=== PATIENT | female | born 1980 | race Caucasian/White ===

== ENCOUNTER → 2019-12-18 17:54 | Outpatient (ROUT) | payer SELFPAY ==
[2019-12-20 09:51] LABS: COVID19 Sendout Not Detected (Not Detect)
== END ==
PROVIDERS: PCP Family Medicine; Visit Provider Internal Medicine
DX: Z11.59 Encounter for screening for other viral diseases (principal)
CPT/HCPCS: 87635

== ENCOUNTER → 2020-02-19 07:11 | Outpatient (CLI) | payer OTHER, SELFPAY ==
--- NOTE | 2020-02-19 | DI.US.S_ITS ---
PROCEDURE: US OB <= 14 WEEKS FETUS INDICATIONS: DATES OUTSIDE/PRIOR DATING DATA: Last menstrual period (LMP): 12/30/2019. LMP-based estimated date of delivery (JEROME): 10/05/2020. First dating scan (date and location): 02/19/2020. Estimated date of delivery (JEROME) from first dating scan: 10/04/2020. TECHNIQUE: Real-time scanning was performed of the fetus and maternal pelvic organs, with image documentation. Endovaginal scanning was also performed to better visualize the fetus and maternal ovaries. COMPARISON: None. FINDINGS: Embryo: Intrauterine gestation with crown-rump length measuring 1.2 cm, corresponding to gestational age of 7 weeks 3 days. heart rate 149 BPM. Yolk sac is seen. No perigestational hemorrhage. Measurement variability in dating: +/- 4 weeks by LMP, +/- 7 days by mean sac diameter (use before 6 weeks gestation if crown-rump length not able to be measured), +/- 5 days by crown-rump length (up to 8 weeks 6 days gestation), +/- 7 days by crown-rump length (up to 13 weeks 6 days gestation). Maternal organs: Ovaries are within normal limits. Left corpus luteum measuring 2.5 cm. Limited images through the kidneys demonstrate no hydronephrosis. IMPRESSION: 1. Lewis living intrauterine at 7 weeks 3 days based on today's crown rump length. 2. No perigestational hemorrhage. Recommend follow-up OB ultrasound at 20 weeks for anatomic survey. Dictated by: Rubens Obando M.D. on 02/19/2020 at 9:52 Approved by: Rubens Obando M.D. on 02/19/2020 at 9:54
== END ==
PROVIDERS: PCP Family Medicine; Referring Provider Family Medicine; Visit Provider Family Medicine
DX: Z36.87 Encounter for antenatal screening for uncertain dates (principal); Z3A.01 Less than 8 weeks gestation of pregnancy
CPT/HCPCS: 76801; 76817

== ENCOUNTER → 2020-05-22 15:38 | Outpatient (CLI) | payer OTHER, SELFPAY ==
--- NOTE | 2020-05-22 | DI.US.S_ITS ---
PROCEDURE: US OB >= 14 WEEKS FETUS INDICATIONS: anatomy scan OUTSIDE/PRIOR DATING DATA: Last menstrual period (LMP): 12/30/19 . LMP-based estimated date of delivery (JEROME): 10/05/20 . First dating scan (date and location): 02/19/20 . Estimated date of delivery (JEROME) from first dating scan: 10/04/20 . TECHNIQUE: Real-time scanning was performed of the fetus, with image documentation and biometric measurements. Endovaginal scanning: Not performed COMPARISON: [facility], OB <= 14 WEEKS FETUS, 02/19/2020, 7:35. FINDINGS: General: A single living intrauterine gestation is present. Presentation: Vertex. Placenta: Placental position is anterior , without previa. Amniotic fluid index: 13.4 cm, normal range is 5-24 cm. heart rate: 160 beats per minute. Maternal cervical canal: 3.8 cm long. Normal lower limit is 2.5 cm. biometrics: Biparietal diameter: 5.1 cm, 21 weeks 2 days Head circumference: 18.5 cm, 20 weeks 6 days Abdominal circumference: 16.3 cm, 21 weeks 2 days Femur length: 3.6 cm, 21 weeks 4 days Estimated gestational age from initial scan: 20 weeks 5 days Composite gestational age from present scan: 21 weeks 2 days Estimated weight and percentile: 419 g, 80th percentile Measurement variability for biometric dating: +/- 7 days from 14 weeks to 15 weeks 6 days gestation, +/- 10 days from 16 weeks to 21 weeks 6 days gestation, +/- 2 weeks from 22 weeks to 27 weeks 6 days gestation, +/- 3 weeks for 28 weeks gestation or later. weight reference: 4500 g or EFW >90/95% is considered macrosomia or large for gestational age. EFW <10% is small for gestational age. EFW 5% or less is considered intra-uterine growth restriction. Anatomic survey: Neuro: Ventricles are non-dilated at less than 10 mm. Cisterna magna is normal at 3-11 mm. Cerebellum is normal in size and morphology. Nuchal skin fold: Normal at less than 6 mm between 14-21 weeks gestational age. Face: Nose and lips, facial profile are normal. Spine: No evidence for spina bifida. Heart: 4-chambered heart is present, with normal ventricular outflow tracts. Diaphragm: Diaphragm is intact. Stomach: Left-sided stomach is present. Kidneys: No hydronephrosis. Normal is less than 5 mm in 2nd trimester, less than 7 mm in 3rd trimester. Cord: 3-vessel cord has orthotopic insertion. Bladder: Normal in size. Extremities: All 4 extremities identified. IMPRESSION: Single living intrauterine fetus in vertex presentation. Expected interval growth Normal anatomic survey Dictated by: Gaston Parnell M.D. on 05/23/2020 at 9:49 Approved by: Gaston Parnell M.D. on 05/23/2020 at 10:01
== END ==
PROVIDERS: PCP Family Medicine; Referring Provider Family Medicine; Visit Provider Family Medicine
DX: Z36.89 Encounter for other specified antenatal screening (principal); Z3A.21 21 weeks gestation of pregnancy
CPT/HCPCS: 76811

== ENCOUNTER → 2020-09-10 15:35 | Outpatient (ROUT) | payer OTHER, SELFPAY | PROVIDERS: PCP Family Medicine; Visit Provider Family Medicine | DX: Z34.00 Encounter for supervision of normal first pregnancy, unspecified trimester (principal) | CPT/HCPCS: 87081; 87147 ==

== ENCOUNTER → 2020-09-24 13:55 | Outpatient (CLI) | payer OTHER, SELFPAY ==
--- NOTE | 2020-09-24 | DI.US.S_ITS ---
PROCEDURE: US OB LIMITED INDICATIONS: SGA OUTSIDE/PRIOR DATING DATA: Last menstrual period (LMP): 12/30/2019 . LMP-based estimated date of delivery (JEROME): 10/05/2020 . First dating scan (date and location): 02/19/2020 . Estimated date of delivery (JEROME) from first dating scan: 10/04/2020 . TECHNIQUE: Real-time scanning was performed of the fetus, with image documentation and biometric measurements. COMPARISON: [facility], OB >= 14 WEEKS FETUS, 05/22/2020, 15:50. [facility], OB <= 14 WEEKS FETUS, 02/19/2020, 7:35. FINDINGS: General: A single living intrauterine gestation is present. Presentation: Vertex. Placenta: Placental position is anterior , without previa. Amniotic fluid index: 11.7 cm, normal range is 5-24 cm. heart rate: 145 beats per minute. Maternal cervical canal: Not evaluated biometrics: Biparietal diameter: 9.3 cm 37 weeks 5 days Head circumference: 33.7 cm 38 weeks 5 days Abdominal circumference: 34.3 cm 38 weeks 2 days Femur length: 7.1 cm 36 weeks 3 days Estimated gestational age from initial scan: 38 weeks 4 days Composite gestational age from present scan: 37 weeks 6 days Estimated weight and percentile: 3315 g 47th percentile Measurement variability for biometric dating: +/- 7 days from 14 weeks to 15 weeks 6 days gestation, +/- 10 days from 16 weeks to 21 weeks 6 days gestation, +/- 2 weeks from 22 weeks to 27 weeks 6 days gestation, +/- 3 weeks for 28 weeks gestation or later. weight reference: 4500 g or EFW >90/95% is considered macrosomia or large for gestational age. EFW <10% is small for gestational age. EFW 5% or less is considered intra-uterine growth restriction. Other: Not applicable. IMPRESSION: 1. Single live intrauterine with appropriate interval growth. Dictated by: Melissa Sunshine M.D. on 09/24/2020 at 16:44 Approved by: Melissa Sunshine M.D. on 09/24/2020 at 16:45
== END ==
PROVIDERS: PCP Family Medicine; Referring Provider Family Medicine; Visit Provider Family Medicine
DX: O26.843 Uterine size-date discrepancy, third trimester (principal); Z3A.37 37 weeks gestation of pregnancy
CPT/HCPCS: 76815

== ENCOUNTER → 2020-10-01 13:40 | Outpatient (CLI) | payer OTHER, SELFPAY ==
--- NOTE | 2020-10-01 | DI.US.S_ITS ---
PROCEDURE: US OB LIMITED COMPARISON: [facility], OB >= 14 WEEKS FETUS, 05/22/2020, 15:50. [facility], OB LIMITED, 09/24/2020, 14:02. INDICATIONS: AMNIOTIC FLUID INDEX FINDINGS: Study at clinician request. Presentation currently is vertex, amniotic fluid index is 11.3 cm. heart rate 126 beats per minute. Current estimated gestational age by initial ultrasound is 39 weeks 4 days. IMPRESSION: Normal amniotic fluid volume. Dictated by: Haile Eduardo M.D. on 10/01/2020 at 16:44 Approved by: Haile Eduardo M.D. on 10/01/2020 at 16:45
== END ==
PROVIDERS: PCP Family Medicine; Referring Provider Family Medicine; Visit Provider Family Medicine
DX: O36.5930 Maternal care for other known or suspected poor fetal growth, third trimester, not applicable or unspecified (principal)
CPT/HCPCS: 76816

== ENCOUNTER 2020-10-01 13:44 | Outpatient (CLI) | payer OTHER, SELFPAY | END 2020-10-01 15:09 | disposition home or self-care (01) | LOC: AC 14:09 → OB 10-02 08:42 | PROVIDERS: PCP Family Medicine; Referring Provider Family Medicine; Visit Provider Family Medicine | DX: O36.5930 Maternal care for other known or suspected poor fetal growth, third trimester, not applicable or unspecified (principal); O09.513 Supervision of elderly primigravida, third trimester; Z3A.39 39 weeks gestation of pregnancy | CPT/HCPCS: 59025; 76816; 87081; G0378; G0379 ==

== ENCOUNTER → 2020-10-01 16:42 | Outpatient (ROUT) | payer OTHER, SELFPAY | PROVIDERS: PCP Family Medicine; Visit Provider Family Medicine | DX: Z34.00 Encounter for supervision of normal first pregnancy, unspecified trimester (principal) | CPT/HCPCS: 87081 ==

== ENCOUNTER 2020-10-07 16:03 | Outpatient (CLI) | payer OTHER, SELFPAY | END 2020-10-07 17:15 | disposition home or self-care (01) | LOC: LABOR 16:50 → OB 10-08 06:44 | PROVIDERS: PCP Family Medicine; Referring Provider Family Medicine; Visit Provider Family Medicine | DX: O36.8130 Decreased fetal movements, third trimester, not applicable or unspecified (principal); Z3A.40 40 weeks gestation of pregnancy; O48.0 Post-term pregnancy | CPT/HCPCS: 59025; G0378; G0379 ==

== ENCOUNTER 2020-10-08 20:03 | Inpatient (IN) | payer OTHER, SELFPAY ==
[2020-10-08 21:36] LABS: Add Manual Diff / Slide Review NO; Basophils Absolute Auto 0 /uL (0-100); Basophils Percent Auto 0.4 % (0-2); Eosinophils Absolute Auto 200 /uL (0-450); Eosinophils Percent Auto 1.4 % (2-4); Hematocrit 33.4 % (36-46); Hemoglobin 11.3 g/dL (12.0-16.0); Lymphocytes Absolute Auto 1500 /uL (1100-4500); Lymphocytes Percent Auto 13.3 % (25-40); Mean Corpuscular HGB Conc 33.8 % (30-36); Mean Corpuscular Hemoglobin 29.8 PG (26-34); Monocytes Absolute Auto 700 /uL (0-900); Monocytes Percent Auto 5.8 % (3-14); Neutrophils Absolute Auto 9000 /uL (1500-7000); Neutrophils Percent Auto 79.1 % (50-75); Platelet Count 248 X10^3/uL (150-400); Red Cell Distribution Width 12.9 % (11.6-14.8); White Blood Cell Count 11.3 X10^3/uL (4.5-11.0)
[2020-10-08] MEDS: DINOPROSTONE VAG (CERVIDIL) 10 MG VAG (21:45)
[2020-10-08 22:31] LABS: COVID19 - ADMIT (NP swab/PCR) Negative (Negative)
[2020-10-08] MEDS: LACTATED RINGERS 1,000 ML 100 ML IV (23:10)
[2020-10-08] MEDS: CEFAZOLIN 1 GM VIAL IV (23:30)
[2020-10-08] MEDS: ACETAMINOPHEN IV 1,000 MG/100 ML VIAL 400 MG IV (23:46)
--- NOTE | 2020-10-08 23:48 | SUR.OPER ---
Supine on Padded OR bed, head on pillow, safety belt at thigh, arms secured on padded arm boards at <90 degrees abduction. Bump under right buttock. Legs uncrossed with pillow under knees, gel pad to heels, tape over blanket to lower legs.
--- NOTE | 2020-10-08 23:52 | SUR.OPER ---
Viable female delivered at 23:43. Cord blood vials x2 and placenta sent with L&D RN.
[2020-10-09] MEDS: LACTATED RINGERS 1,000 ML 100 ML IV (00:24)
--- NOTE | 2020-10-09 00:26 | P.OP_ITS ---
Operative Date/Time/Diagnoses Date of procedure: 10/09/20 Time of procedure: 00:26 Pre-op diagnosis: 40+ internal uterine with advanced maternal age and distres Post-op diagnosis: same Procedure & Clinicians Procedure: primary low transverse Same procedure as scheduled: Yes Indications: advanced maternal age and phenyl distress Surgeon: Terry Alvarado Jelly Filter Tender: Genesis Koenig Click Yes if Unassisted: No Anesthesia Type: Epidural Operative Notes Findings: viable female 7 lb 6 oz Apgars 9 and 9. Normal pelvic organs Closure Type: primary Specimen(s): none sent Applied: catheter Estimated Blood Loss (mL): 400 Blood products transfused: none Procedure in detail: patient was consented in her room. After the fact that baby was having distress. For to 5 minute deceleration. We discussed the reasons for this. Questions were answered. Both her and her understood. She was brought to the operative theatre and scopes procedure were followed. She was placed on the operative table and epidural was placed by Dr. Dotson without complications. Excellent results. She was placed in the wedge supine position prepped and draped in the usual manner after catheter was placed. Pfannenstiel incision was then made down to the subcutaneous tissue. It was extended bluntly. The midline was then entered and the fascia with sharp dissection with the scalpel and then extended laterally with scissors. Bilaterally. Elevated with Ashtyn is and blunt dissection was used to elevate the fascia off the muscle in the midline was cut with S curve scissors. This was repeated inferiorly. Blunt dissection was then undertaken between the muscle layer until the perineum was established and would under direct visualization was bluntly entered. This was extended with blunt dissection. Bladder blade was then introduced. Bladder flap was then developed after incision with Mahmood scissors. Bladder blade was placed into the bladder flap. A low-transverse incision was then made on the uterus in the usual manner. Until clear fluid was noted. It was extended bluntly. Head was then grasped and delivered without complications nuchal cord x1. Child was slightly in the left occiput lateral position. Child was crying immediately. Cord was clamped cord bloods and cord gases were obtained. Sent with respiratory therapy. Placenta was then removed manually without complications the uterine contents were then swiped with a wet lap sponge. X2. No bleeding was noted. Uterine incisions other grafts to in the corner with ring forceps along with inferior lip. Ring forceps was passed through the cervix into the vagina and off of the operative theater. Uterine incision was then closed with running locked chromic sutures. This was repeated with a running imbricating chromic suture line. Irrigation was then done to the abdominal contents re-evaluated wound and was found to be dry. Bladder flap was then closed with running 3-0 Vicryl. Peritoneum was then closed with running 2-0 Vicryl. Muscle layer was then approximated with 2 2-0 Vicryl interrupted sutures. Fascia was then closed with running 1 Vicryl. Irrigation was done to the subcutaneous tissue. Subcutaneous tissue was then approximated with 3 3-0 Vicryl interrupted sutures he. Skin was closed with 4-0 subcuticular sutures. Steri-Strips and dressing were applied. All sponge instrument needle counts were correct. mother and infant were in stable condition. EBL 400 cc
[2020-10-09 00:38] VITALS: BP 101/57; PULSE 62; RESP 16; TEMP 36.3; O2SAT 98
[2020-10-09 00:40] VITALS: BP 118/61; PULSE 67; RESP 23; O2SAT 98
[2020-10-09 00:46] VITALS: BP 108/48; PULSE 69; RESP 17; O2SAT 98
--- NOTE | 2020-10-09 00:47 | PM.OBHP.1 ---
OB HPI Date/Time Date of admission: 10/09/20 Date Patient Seen: 10/09/20 Time Patient Seen: 22:30 History of Present Condition Chief complaint: induction : 2 Para: 0 Estimated Date of Delivery: 10/05/20 Estimated Gestational Age (weeks): Forty Narrative: Gaston Camara is a 40 year old female female who I was asked to see for distress. Patient was brought in for elderly at 39 weeks [address] induction [address] Dr[address] Koenig. She had Cervidil placed and 1 hour later heart rate went into the 60s for 5 minutes despite oxygen positional changes in fluid challenge. no other complications. GBS positive. Patient had been feeling well. Having no other complaint or problem. Indications Indication for induction OB: other Other reason(s) for admission: Induction for elderly maternal . History of Present care: good care Dating criteria: LMP confirmed by 1st trimester US Ultrasounds: normal mid trimester US Obstetrical complications: none Medical complications: none Preadmission Labs Blood type: O (+) positive -: Antibody screen: negative, Cystic fibrosis screen: unknown, GBS status: positive, HBsAG: negative, HSV 1: negative and RPR/VDLR: negative -: Chlamydia screen: not detected and Gonorrhea screen: not detected -: Rubella: immune and Varicella: unknown HCAB: negative PAP: Normal 1 hr GTT: 101 Evaluation Evaluation Laboratory results: Laboratory Tests 10/08/20 10/08/20 10/08/20 21:05 21:05 21:05 WBC 11.3 H RBC 3.80 L Hgb 11.3 L Hct 33.4 L MCV 88.0 MCH 29.8 MCHC 33.8 RDW 12.9 Plt Count 248 Neut % (Auto) 79.1 H Lymph % (Auto) 13.3 L [place] % (Auto) 5.8 Eos % (Auto) 1.4 L Baso % (Auto) 0.4 Neut # (Auto) 9000 H Lymph # (Auto) 1500 [place] # (Auto) 700 Eos # (Auto) 200 Baso # (Auto) 0 SARS-CoV-2 (PCR) Negative Blood Type O Positive Antibody Screen Negative PFSH Social History Smoking Status: Never smoker Meds Home Medications and Allergies Home Medications Medication Instructions Recorded Confirmed Type No Known Home Medications 10/08/20 10/08/20 History Allergies Allergy/AdvReac Type Severity Reaction Status Date / Time INGREDIENT: NKDA - NO KNOWN Allergy Unknown Uncoded 08/04/17 12:07 DRUG ALLERGIES Exam Vital Signs (past 8 hours): - 10/09/20 00:38 10/09/20 00:40 Temperature 97.3 F L Pulse Rate 62 67 Respiratory Rate 16 23 Blood Pressure 101/57 L 118/61 Pulse Oximetry 98 98 Oxygen Delivery Method Room Air Narrative Exam Narrative: Alert gravid female lying in bed on side with oxygen in no acute distress. Lungs are clear. Heart regular rate and rhythm. Abdomen is gravid vertex nontender. Extremities without edema. Objective Labs Result Diagrams: 10/08/20 21:05 Labs: Laboratory Results - last 24 hr 10/08/20 10/08/20 10/08/20 21:05 21:05 21:05 WBC 11.3 H RBC 3.80 L Hgb 11.3 L Hct 33.4 L MCV 88.0 MCH 29.8 MCHC 33.8 RDW 12.9 Plt Count 248 Neut % (Auto) 79.1 H Lymph % (Auto) 13.3 L [place] % (Auto) 5.8 Eos % (Auto) 1.4 L Baso % (Auto) 0.4 Neut # (Auto) 9000 H Lymph # (Auto) 1500 [place] # (Auto) 700 Eos # (Auto) 200 Baso # (Auto) 0 SARS-CoV-2 (PCR) Negative Blood Type O Positive Antibody Screen Negative Assessment and Plan Assessment and Plan Assessment and Plan narrative: 40-year-old 40+ week intrauterine with Cervidil placed and shortly after without really any significant contractions as significant deceleration. After discussion with heard physician Dr. Koenig it was decided since she has minimal cervix change at this point and significant deceleration primary cyst sections section emergently will be undertaken. This was discussed with patient and her period and consent was signed. Will proceed operat
[2020-10-09 00:50] VITALS: BP 106/50; PULSE 69; RESP 20; O2SAT 99
[2020-10-09] MEDS: diphenhydrAMINE 50 MG/ML VIAL 25 MG IV (02:19)
[2020-10-09] MEDS: ONDANSETRON 4 MG/2 ML INJ IV (02:19)
[2020-10-09 03:55] VITALS: BP 114/75; PULSE 86; RESP 18; TEMP 36.6
[2020-10-09 05:16] VITALS: PULSE 70; RESP 20; O2SAT 99
[2020-10-09] MEDS: KETOROLAC 30 MG/ML VIAL IV ×3 (08:17→21:05)
[2020-10-09] MEDS: PRENATAL VIT,CALC/IRON/FOLIC 1 TABLET 1 TAB PO (08:18)
--- NOTE | 2020-10-09 08:39 | P.PN_ITS ---
Subjective Subjective Date Patient Seen: 10/09/20 Time Patient Seen: 08:39 Interval history: Patient feeling well this morning. Having minimal pain. Feels like she can reposition in bed not do bed. Minimal bleeding. Breast- feeding is going okay. Still working on that. No other changes. Exam Vital Signs (past 8 hours): - 10/09/20 00:40 10/09/20 00:46 10/09/20 00:50 Pulse Rate 67 69 69 Respiratory Rate 23 17 20 Blood Pressure 118/61 108/48 L 106/50 L Pulse Oximetry 98 98 99 10/09/20 05:16 Pulse Rate 70 Respiratory Rate 20 Blood Pressure Pulse Oximetry Oxygen Delivery Method Room Air Narrative Exam Narrative: Alert female lying in bed no acute distress. Lungs are clear. Heart regular rate and rhythm. Uterus is firm in bili cuss incision is clean and dry. Extremities without cyanosis clubbing edema Objective Labs Result Diagrams: 10/08/20 21:05 Labs: Laboratory Results - last 24 hr 10/08/20 10/08/20 10/08/20 21:05 21:05 21:05 WBC 11.3 H RBC 3.80 L Hgb 11.3 L Hct 33.4 L MCV 88.0 MCH 29.8 MCHC 33.8 RDW 12.9 Plt Count 248 Neut % (Auto) 79.1 H Lymph % (Auto) 13.3 L [place] % (Auto) 5.8 Eos % (Auto) 1.4 L Baso % (Auto) 0.4 Neut # (Auto) 9000 H Lymph # (Auto) 1500 [place] # (Auto) 700 Eos # (Auto) 200 Baso # (Auto) 0 SARS-CoV-2 (PCR) Negative Blood Type O Positive Antibody Screen Negative [facility] Social History Smoking Status: Never smoker Assessment & Plan Assessment & Plan narrative: Postop day 1. Doing well. Discussed usual Education. Questions were answered. Overall doing exceedingly well. Possibly home tomorrow. Routine care. Will see how things go.
[2020-10-10 06:49] LABS: Hematocrit 28.7 % (36-46); Hemoglobin 9.8 g/dL (12.0-16.0)
[2020-10-10] MEDS: IBUPROFEN 600 MG TABLET PO (09:35)
[2020-10-10] MEDS: PRENATAL VIT,CALC/IRON/FOLIC 1 TABLET 1 TAB PO (09:35)
--- NOTE | 2020-10-10 13:35 | P.DS_ITS ---
Discharge Providers Provider Date of admission: 10/08/20 20:03 Discharge Date: 10/10/20 Primary care physician: Genesis Koenig MD Consults: 10/09/20 01:20 Consult to [employer] Routine Comment: Discharge provider: Genesis Koenig MD Summary Hospital Course Diagnoses: Term gestation status post Caesarean section, primary low-transverse secondary to distress. GBS positive, status post 1 dose of cefazolin Advanced maternal age Hospital Course: Patient admitted to hospital for induction due to advanced maternal age. Cervidil placed and 1 hour later spontaneous T-cell with movement of heart rate to 60s lasting for 4 minutes with slow recovery over the next 5-10 minutes up to baseline of the 1 teens 120s. Variability remained stable throughout this but it was decided to proceed with emergency Caesarean section. Patient tolerated procedure well without difficulty had unremarkable course. She did excellent. Her pain was managed with Toradol and then changed over to oral Motrin. She did not require any narcotics. At the time of discharge she is tolerating p.o. without difficulty urinating and having flatus but has not had a bowel movement. She is discharged to home on day 2. Peripartum Data Delivery Method: Section Procedures: Primary low transverse section complications: none Status at Discharge Cognitive/behavioral status at discharge: oriented Functional status at discharge: independent ambulation Overall status at discharge: patient is progressing back to baseline Time Spent with Patient Time attestation: Total time spent providing and/or coordinating discharge services: 35 minutes Objective Labs Result Diagrams: 10/10/20 06:32 Labs: Laboratory Results - last 24 hr 10/10/20 06:32 Hgb 9.8 L Hct 28.7 L Exam Vital Signs (past 8 hours): Oxygen Delivery Method Room Air Narrative Exam Narrative: Afebrile, vital signs are stable HEENT unremarkable Neck: Supple without adenopathy Chest: Clear to auscultation without wheezes rhonchi or crackles Cor: Regular rate and rhythm any murmur Abdomen positive bowel sounds, soft, nontender, incision clean and dry Extremities: No edema, pulses intact, DTRs intact Discharge Plan Discharge Plan Patient Disposition: Home Discharge orders & Medications Prescriptions: No Action No Known Home Medications RF: 0 Follow up/Referrals: Genesis Koenig MD [Primary Care Provider] - (Dressing removal and incision check to be done at exam scheduled with Dr. Koenig on Wednesday, October 14 @2:15pm.) Diet/Activity/Treatments Diet: Diet as Tolerated Diet comment: Regular as tolerated Activity: Pelvic rest, no heavy lifting, no driving x4 weeks Skin/Wound/Dressing Care Report to your healthcare provider any signs of infection, such as:: chills, fever, night sweats, increased pain, unusual drainage and unusual redness Discharge Data Primary Care Provider: Genesis Koenig
== END 2020-10-10 15:02 | disposition home or self-care (01) | DRG 788 ==
PROVIDERS: Family Medicine; Admitting Provider Family Medicine; PCP Family Medicine; Referring Provider Family Medicine; Visit Provider Family Medicine
PROC: (CPT 59514; principal; 2020-10-08 23:15)
DX: O48.0 Post-term pregnancy (principal); O76 Abnormality in fetal heart rate and rhythm complicating labor and delivery; O99.824 Streptococcus B carrier state complicating childbirth; Z3A.40 40 weeks gestation of pregnancy; Z37.0 Single live birth; Z20.822 Contact with and (suspected) exposure to COVID-19
CPT/HCPCS: 36415; 59050; 59200; 85014; 85018; 85025; 86850; 86900; 86901; 87635; C9803; G0379; J0131; J0330; J0690; J1200; J1885; J2274; J2405; J2590

== ENCOUNTER → 2021-05-19 12:45 | Outpatient (CLI) | payer OTHER, SELFPAY ==
--- NOTE | 2021-05-19 12:46 | DI.RAD.S_ITS ---
PROCEDURE: FL UPPER GI W AIR INDICATIONS: Dysphagia, unspecified COMPARISON: None. 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 No suspicious abdominal calcifications. Visualized solid organ contours appear normal. Bony structures appear unremarkable. Esophagus: Esophageal mucosa is normal on air-contrast views. Small hiatal hernia with prominent Schatzki's ring noted. On single-contrast views, there is normal esophageal peristalsis. No strictures, extrinsic mass effects, or diverticula. No elicited gastroesophageal reflux. There is normal transit of a calibrated barium tablet through the esophagus. Stomach: The stomach is normally distensible, with normal rugal fold thickness. No mucosal masses or ulcers. Pylorus and duodenal bulb appear normal in morphology. Duodenal folds are normal in thickness as well. IMPRESSION: 1. Small hiatal hernia with prominent Schatzki's ring which do not impede passage of 13 millimeter barium tablet. 2. Otherwise, normal examination. Dictated by: Lisette Israel MD, PhD on 05/19/2021 at 16:17 Approved by: Lisette Israel MD, PhD on 05/19/2021 at 16:21
== END ==
PROVIDERS: PCP Family Medicine; Referring Provider Family Medicine; Visit Provider Family Medicine
DX: R13.10 Dysphagia, unspecified (principal); K22.2 Esophageal obstruction; K44.9 Diaphragmatic hernia without obstruction or gangrene
CPT/HCPCS: 74246

== ENCOUNTER → 2022-01-20 09:00 | Outpatient (CLI) | payer OTHER, SELFPAY | PROVIDERS: PCP Family Medicine; Referring Provider Internal Medicine; Visit Provider Internal Medicine | DX: Z23 Encounter for immunization (principal) | CPT/HCPCS: 90471; 90686 ==

== ENCOUNTER → 2022-02-05 16:16 | Outpatient (CLI) | payer OTHER, SELFPAY ==
--- NOTE | 2022-02-05 | DI.MG.S_ITS ---
BILATERAL DIGITAL SCREENING MAMMOGRAM 3D/2D WITH CAD: 02/05/2022 CLINICAL: Routine screening. Baseline exam. No prior exams were available for comparison. Both breasts are heterogeneously dense, which may obscure small masses (category c / 51-75% glandular tissue). Current study was also evaluated with a Computer Aided Detection (CAD) system. No significant masses, calcifications, or other findings are seen in either breast. IMPRESSION: NEGATIVE There is no mammographic evidence of malignancy. A 1 year screening mammogram is recommended. Based on the Tyrer Cuzick model (a risk assessment model) the patient's lifetime risk is 12.2% and her 10 year risk is 1.5%. According to the ACR, ACS, and NCCN guidelines, an annual breast MRI exam along with mammogram is recommended if the patient's lifetime risk is 20% or greater. This exam was interpreted at Station ID: [id number]. NOTE: For mammograms, a report in lay terms will be sent to the patient. Approximately 15% of breast malignancies will not be visualized mammographically. In the management of a palpable breast mass, a negative mammogram must not discourage biopsy of a clinically suspicious lesion. Electronically Signed By: Erin hwang/tabitha:02/06/2022 11:13:14 letter sent: Normal Exam ACR BI-RADS Category 1: Negative 3341F
== END ==
PROVIDERS: PCP Family Medicine; Referring Provider Family Medicine; Visit Provider Family Medicine
DX: Z12.31 Encounter for screening mammogram for malignant neoplasm of breast (principal)
CPT/HCPCS: 77063; 77067

== ENCOUNTER → 2022-05-18 14:58 | Outpatient (CLI) | payer OTHER, SELFPAY ==
[2022-05-18 21:38] LABS: Urine N gonorrhoeae NOT DETECTED
[2022-05-18 21:45] LABS: Urine Chlamydia NOT DETECTED
== END ==
PROVIDERS: PCP Family Medicine; Visit Provider Obstetrics & Gynecology
DX: Z34.81 Encounter for supervision of other normal pregnancy, first trimester (principal); Z3A.08 8 weeks gestation of pregnancy
CPT/HCPCS: 87491; 87591

== ENCOUNTER → 2022-05-29 11:30 | Outpatient (CLI) | payer OTHER, SELFPAY ==
[2022-05-29 12:39] LABS: Add Manual Diff / Slide Review NO; Basophils Absolute Auto 0 /uL (0-100); Basophils Percent Auto 0.2 % (0-2); Eosinophils Absolute Auto 0 /uL (0-450); Eosinophils Percent Auto 0.5 % (2-4); Hematocrit 38.7 % (36-46); Hemoglobin 13.1 g/dL (12.0-16.0); Lymphocytes Absolute Auto 600 /uL (1100-4500); Lymphocytes Percent Auto 10.1 % (25-40); Mean Corpuscular HGB Conc 33.9 % (30-36); Mean Corpuscular Hemoglobin 29.1 PG (26-34); Mean Corpuscular Volume 85.7 fL (80-100); Monocytes Absolute Auto 300 /uL (0-900); Monocytes Percent Auto 4.8 % (3-14); Neutrophils Absolute Auto 4900 /uL (1500-7000); Neutrophils Percent Auto 84.4 % (50-75); Platelet Count 200 X10^3/uL (150-400); Red Blood Cell Count 4.52 X10^6/uL (4.0-5.2); Red Cell Distribution Width 14.2 % (11.6-14.8); White Blood Cell Count 5.8 X10^3/uL (4.5-11.0)
[2022-05-29 14:17] LABS: Hepatitis B Surface Antigen NEGATIVE s/c (NEGATIVE)
[2022-05-29 14:38] LABS: HIV 1 & 2 Ab/Ag 4th Gen Combo NEGATIVE (NEGATIVE); Hep C Virus Ab w/Reflex Quant NEGATIVE s/c (NEGATIVE)
[2022-05-29 19:13] LABS: Appearance Urine UA CLEAR; Bilirubin Urine UA 1+ (NEGATIVE); Color Urine UA YELLOW; Glucose Urine UA NEGATIVE (Negative); Ketones Urine UA TRACE (NEGATIVE); Leukocyte Esterase Urine UA NEGATIVE (NEGATIVE); Nitrite Urine UA POSITIVE (Negative); Occult Blood Urine UA NEGATIVE (Negative); Protein Urine UA TRACE (Negative); Specific Gravity Urine UA >=1.030 (1.000-1.035)
[2022-05-29 19:30] LABS: Amorphous Sediment Urine 4+; Bacteria Urine None Seen; Culture Indicated Urine Cult Not Indicated; Ictotest Urine Negative (Negative); RBC Urine None Seen (0-5/HPF); Squamous Epithelial Cell Urine None Seen (0-5/HPF); WBC Urine None Seen (0-5/HPF)
[2022-05-30 08:09] LABS: RPR Screen Non Reactive (Non Reactive); Varicella IgG Antibody 2367 index (Immune >165)
== END ==
PROVIDERS: PCP Family Medicine; Referring Provider Obstetrics & Gynecology; Visit Provider Obstetrics & Gynecology
DX: Z34.81 Encounter for supervision of other normal pregnancy, first trimester (principal)
CPT/HCPCS: 36415; 80055; 81003; 81015; 86787; 86803; 86850; 86900; 86901; 87086; 87389

== ENCOUNTER → 2022-06-01 12:46 | Outpatient (CLI) | payer OTHER, SELFPAY | PROVIDERS: PCP Family Medicine; Referring Provider Obstetrics & Gynecology; Visit Provider Obstetrics & Gynecology | DX: O09.521 Supervision of elderly multigravida, first trimester (principal) | CPT/HCPCS: 36415 ==

== ENCOUNTER → 2022-07-13 09:52 | Outpatient (CLI) | payer OTHER, SELFPAY ==
[2022-07-16 19:07] LABS: AFP Value 23.2 ng/mL (.); Gest Age on Col Date 16.1 weeks (.); Insulin Dep Diabetes No (.); OSBR Risk 1IN 10000 (.); Results Report (.); Test Results *Screen Negative* (.)
== END ==
PROVIDERS: PCP Family Medicine; Referring Provider Physician Assistant Medical; Visit Provider Physician Assistant Medical
DX: Z34.82 Encounter for supervision of other normal pregnancy, second trimester (principal); Z3A.16 16 weeks gestation of pregnancy
CPT/HCPCS: 36415; 82105

== ENCOUNTER → 2022-08-10 14:05 | Outpatient (CLI) | payer OTHER, SELFPAY ==
--- NOTE | 2022-08-10 14:06 | DI.US.S_ITS ---
PROCEDURE: US OB >= 14 WEEKS FETUS INDICATIONS: ANATOMY OUTSIDE/PRIOR DATING DATA: Last menstrual period (LMP): 03/22/2022. LMP-based estimated date of delivery (JEROME): 12/27/2022. First dating scan (date and location): 05/18/2022. Estimated date of delivery (JEROME) from first dating scan: 12/25/2022. The calculations are made using the working JEROME of 12/25/2022. TECHNIQUE: Real-time scanning was performed of the fetus, with image documentation and biometric measurements. Endovaginal scanning: None COMPARISON: [facility], OB >= 14 WEEKS FETUS, 05/22/2020, 15:50. FINDINGS: General: A single living intrauterine gestation is present. Presentation: Transverse. Placenta: Placental position is posterior , without previa. Amniotic fluid index: 14.2 cm, normal range is 5-24 cm. Single deepest vertical pocket is 4.6 cm. heart rate: 136 beats per minute. Maternal cervical canal: 4.1 cm long. Normal lower limit is 2.5 cm. biometrics: Biparietal diameter: 4.9 cm, 20 week 5 day Head circumference: 18.0 cm, 20 week 3 day Abdominal circumference: 16.3 cm, 21 week 3 day Femur length: 3.3 cm, 20 week 3 day Clinically estimated gestational age: 20 week 1 day Composite gestational age from present scan: 20 week 5 day Estimated weight and percentile: 383 g, 84th percentile Anatomic survey: Neuro: Ventricles are non-dilated at less than 10 mm. Cisterna magna is normal at 3-11 mm. Cerebellum is normal in size and morphology. Nuchal skin fold: Normal at less than 6 mm between 14-21 weeks gestational age. Face: Nose and lips, facial profile are normal. Spine: No evidence for spina bifida. Heart: 4-chambered heart is present, with normal ventricular outflow tracts. Diaphragm: Diaphragm is intact. Stomach: Left-sided stomach is present. Kidneys: No hydronephrosis. Normal is less than 5 mm in 2nd trimester, less than 7 mm in 3rd trimester. Cord: 3-vessel cord has orthotopic insertion. Bladder: Normal in size. Extremities: All 4 extremities identified. IMPRESSION: Single live intrauterine consistent with a 20 week 5 day gestation by current ultrasound Approved by: Marin Rankin M.D. on 08/10/2022 at 18:55
== END ==
PROVIDERS: PCP Family Medicine; Referring Provider Obstetrics & Gynecology; Visit Provider Obstetrics & Gynecology
DX: Z34.82 Encounter for supervision of other normal pregnancy, second trimester (principal); Z3A.20 20 weeks gestation of pregnancy
CPT/HCPCS: 76811

== ENCOUNTER → 2022-09-23 12:36 | Outpatient (CLI) | payer OTHER, SELFPAY ==
[2022-09-23 14:32] LABS: Hematocrit 36.1 % (36-46); Hemoglobin 12.4 g/dL (12.0-16.0)
[2022-09-23 16:04] LABS: GTT (PREG) 1 Hour PP 50gm Dose 98 mg/dL (76-139)
== END ==
PROVIDERS: PCP Family Medicine; Referring Provider Obstetrics & Gynecology; Visit Provider Obstetrics & Gynecology
DX: Z34.82 Encounter for supervision of other normal pregnancy, second trimester (principal); Z3A.26 26 weeks gestation of pregnancy
CPT/HCPCS: 36415; 82950; 85014; 85018

== ENCOUNTER 2022-09-24 23:10 | Outpatient (CLI) | payer OTHER, SELFPAY ==
--- NOTE | 2022-09-25 07:24 | PM.OBTRLD ---
Visit Information Visit Information Date of evaluation: 09/24/22 Primary OB Provider: Sujey Jung On-call OB Provider: Alissa Robb Reason for Evaluation: Yes other Comments/Additional reasons for admission: 42YO @ 26wks 4 days here for evaluation of well being. Had sex this morning and rearranged the garage today, then noticed scant spotting this evening with no recurrence since. No cramping abdominal pain or pelvic pain. Has not felt much movement since noticing the spotting. Routine care with . Vital Signs Vital Signs: BP 123/66, HR 91bpm, RR 18, T 97.1F Temporal PFS Medical History Chicken pox (~1984) Erosive esophagitis Hearing decreased Hearing loss History of recurrent ear infection Knee injury MRSA (methicillin resistant Staphylococcus aureus) (~2008) infant of 40 completed weeks of gestation Non-reassuring heart tones, delivered, current hospitalization Nuchal cord affecting delivery Surgical History Delivery by section (~10/08/20) H/O tympanostomy History of removal of skin mole Skin cancer (~2010) [place] teeth extracted Family History Mother Hypertension Dementia Hyperlipidemia Father Hypertension Hyperlipidemia Family/Other Testicular cancer Prostate cancer Grandmother Dementia Family/Other Dementia Grandfather Diabetes mellitus Hypertension Grandmother Dementia Social History marital status: household members: spouse, family (mother) and children lives independently: Yes caregiver/support person: Yes housing: house pets and animals: Yes (2 dogs 1 cat; aware of toxo precautions) education level: college (associate's degree) occupational status: employed (part-time) 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) special chaim needs: No travel history: over 6 months ago seatbelt use: always helmet use: Yes water heater temp set < 120 deg: Yes working smoke detector in home: Yes fire extinguisher in home: Yes carbon monox detector in home: Yes firearms in home: No do you feel safe at home: Yes Smoking Status: Never smoker second hand exposure: No alcohol intake: never substance use type: does not use during the past year weight has: remained stable well-balanced diet: about half the time daily servings fruits/ve-4 caffeine: Yes (Well within 200mg limit) Type(s) of exercise: none Review of Systems Review of Systems ROS: Yes All systems reviewed with the patient and are negative except as otherwise documented Exam Vital Signs (past 8 hours): see above Evaluation Evaluation Comments: FHTs 130-150 by doppler. Fetalmovement noted by RN and patient during doppler FHTs. Diagnosis, Plan/Disposition Final Diagnosis (1) Decreased movement affecting management of in second trimester: Status: Acute Plan/Disposition Plan: Reassurance given for well-being at this time. Routine precautions. UA was collected and will be sent for culture. 's office to call if treatment indicated. Encouraged less strenuous activity for duration of . Follow-up with Dr. Jung as previously scheduled. OB Disposition: home
== END 2022-09-24 23:38 | disposition home or self-care (01) ==
LOC: OB 10-22 07:48
PROVIDERS: PCP Family Medicine; Referring Provider Nurse Practitioner Obstetrics & Gynecology; Visit Provider Nurse Practitioner Obstetrics & Gynecology
DX: O36.8120 Decreased fetal movements, second trimester, not applicable or unspecified (principal); O26.852 Spotting complicating pregnancy, second trimester; Z3A.26 26 weeks gestation of pregnancy
CPT/HCPCS: G0378; G0379

== ENCOUNTER 2022-11-18 14:58 | Outpatient (CLI) | payer OTHER, SELFPAY | END 2022-11-18 16:10 | disposition home or self-care (01) | LOC: OB 11-23 06:33 | PROVIDERS: PCP Family Medicine; Referring Provider Obstetrics & Gynecology; Visit Provider Obstetrics & Gynecology | DX: O09.523 Supervision of elderly multigravida, third trimester (principal); Z3A.34 34 weeks gestation of pregnancy | CPT/HCPCS: 59025; G0378; G0379 ==

== ENCOUNTER 2022-11-26 13:30 | Outpatient (CLI) | payer OTHER, SELFPAY | END 2022-11-26 14:10 | disposition home or self-care (01) | LOC: LABOR 13:55 → OB 11-30 10:38 | PROVIDERS: PCP Family Medicine; Referring Provider Obstetrics & Gynecology; Visit Provider Obstetrics & Gynecology | DX: O09.523 Supervision of elderly multigravida, third trimester (principal); Z3A.35 35 weeks gestation of pregnancy | CPT/HCPCS: 59025; G0378; G0379 ==

== ENCOUNTER 2022-12-01 15:24 | Outpatient (CLI) | payer OTHER, SELFPAY | END 2022-12-01 16:15 | disposition home or self-care (01) | LOC: OB 12-07 06:57 | PROVIDERS: PCP Family Medicine; Referring Provider Obstetrics & Gynecology; Visit Provider Obstetrics & Gynecology | DX: O09.523 Supervision of elderly multigravida, third trimester (principal); Z3A.36 36 weeks gestation of pregnancy; Z34.83 Encounter for supervision of other normal pregnancy, third trimester | CPT/HCPCS: 59025; 87653; G0378; G0379 ==

== ENCOUNTER → 2022-12-01 17:20 | Outpatient (CLI) | payer OTHER, SELFPAY ==
[2022-12-02 15:13] LABS: Strep Grp B PCR POS for Grp B Strep
== END ==
PROVIDERS: PCP Family Medicine; Visit Provider Obstetrics & Gynecology
DX: Z34.83 Encounter for supervision of other normal pregnancy, third trimester (principal); Z3A.36 36 weeks gestation of pregnancy
CPT/HCPCS: 87653

== ENCOUNTER 2022-12-07 10:28 | Outpatient (CLI) | payer OTHER, SELFPAY | END 2022-12-07 11:18 | disposition home or self-care (01) | LOC: OB 12-10 12:45 | PROVIDERS: PCP Family Medicine; Referring Provider Obstetrics & Gynecology; Visit Provider Obstetrics & Gynecology | DX: O09.523 Supervision of elderly multigravida, third trimester (principal); Z3A.37 37 weeks gestation of pregnancy | CPT/HCPCS: 59025; G0378; G0379 ==

== ENCOUNTER 2022-12-15 14:11 | Outpatient (CLI) | payer OTHER, SELFPAY | END 2022-12-15 14:48 | disposition home or self-care (01) | LOC: LABOR 14:20 → OB 12-17 12:21 | PROVIDERS: PCP Family Medicine; Referring Provider Obstetrics & Gynecology; Visit Provider Obstetrics & Gynecology | DX: O09.523 Supervision of elderly multigravida, third trimester (principal); Z3A.38 38 weeks gestation of pregnancy | CPT/HCPCS: 59025; G0378; G0379 ==

== ENCOUNTER 2022-12-21 05:42 | Inpatient (IN) | payer OTHER, SELFPAY ==
--- NOTE | 2022-12-21 | PATH_ITS ---
[facility] Accession Number: [id number] No. of containers..01 Tissue . 01 Material submitted: . fallopian tube - BILATERAL FALLOPIAN TUBES . 01 Diagnosis: Bilateral Fallopian Tubes: Fallopian tubes x2, complete cross-sections; negative for significant atypia. MRV 12/30/2022 1408 Local . 01 Electronically signed: . Mary Sherman MD, Pathologist NPI- [id number] . 01 Gross description: . The specimen is received in formalin labeled with the patient's name, , and bilateral fallopian tubes, and consists of two unoriented fimbriated fallopian tubes measuring 7.6 x 0.8 cm and 6.8 x 0.7 cm. Both tubes have violaceous smooth serosa with no cystic structures identified. Sectioning reveals unremarkable stellate lumens. [employer] sections are submitted as follows: A1: Longer fallopian tube to include one-half of bisected fimbriae and cross sections. A2: [place] fallopian tube to include one-half of bisected fimbriae and cross sections. ([id number]) /FRR 12/23/2022 0356 Local . 01 Pathologist provided ICD-10: Z30.2 . 01 CPT . 967498 Specimen Comment: A courtesy copy of this report has been sent to [phone] Performed at: [facility] [address] [place] [address], [place], [place] [id number] MD Yousif Johnson MD Phone: [phone]
[2022-12-21 06:16] VITALS: BP 111/69
--- NOTE | 2022-12-21 06:49 | P.HPOB_ITS ---
OB HPI Date/Time Date of admission: 12/21/22 Date Patient Seen: 12/21/22 Time Patient Seen: 06:49 History of Present Condition Chief complaint: Section JEROME Calculator Estimated Delivery Date Method Current WG Current Estimate 12/27/22 LMP (Certain) 39w 1d Other Estimates 12/25/22 Ultrasound #1 39w 3d Estimated Gestational Age (weeks): 39+1 : 3 Para: 1 care: good care, initiated at week # (8), number of visits (12) and pounds weight gain (19) Dating criteria OB: LMP confirmed by 1st trimester US Ultrasounds: normal 1st trimester US and normal mid trimester US Obstetrical complications: none Medical complications OB: gastrointestinal (esophagitis) Indications Operative indications ( section): previous uterine surgery Preadmission Labs Last OB Lab Results: Blood Type O Positive 05/29/22 12:02 Antibody Screen Negative 05/29/22 12:02 Hematocrit 34.2 % (36-46) L 12/21/22 06:40 Hemoglobin 12.1 g/dL (12.0-16.0) 12/21/22 06:40 Hepatitis B Surface Antigen Negative s/c (NEGATIVE) 05/29/22 12 :02 Hepatitis C Antibody Negative s/c (NEGATIVE) 05/29/22 12:02 Rubella Antibody 134.0 IU/mL (>15) 05/29/22 12:02 Varicella-Zoster IgG Antibody 2367 index (Immune >165) 05/29/22 12:02 Glucose 1 Hour 98 mg/dL (76-139) 09/23/22 13:44 Group B Streptococcus (PCR) Pos for grp b strep H 12/01/22 17:2 0 -: Chlamydia screen: negative, Gonorrhea screen: negative and Urine: negative -: PAP smear: Normal Genetic Screens: Cell-free DNA: Normal and Alpha-fetoprotein: Normal External Labs -: Urine: negative Prior (ies) Past Pregnancies Del. Date GA/Weeks Labor Lgth Wt Sex Route Outcome Anesthesia Place Delv Breastfeed Preg Comp Name 10/08/20 40.3 7 lb 8 oz Female live - full term IH 4 months none [place] Delivery Date: 10/08/20 Last Updated by: Elisha Eisenberg RN Presented for induction, but taken to c/s for bradycardia Evaluation Evaluation Baseline heart rate: 135 Variability: Moderate (11-25) monitor accelerations: Present Monitor Decelerations: Absent Uterine Contraction Intensity: Mild PFSH Medical History Chicken pox (~1984) Erosive esophagitis Hearing decreased Hearing loss History of recurrent ear infection Knee injury MRSA (methicillin resistant Staphylococcus aureus) (~2008) infant of 40 completed weeks of gestation Non-reassuring heart tones, delivered, current hospitalization Nuchal cord affecting delivery Surgical History Delivery by section (~10/08/20) H/O tympanostomy History of removal of skin mole Skin cancer (~2010) [place] teeth extracted Family History Mother Hypertension Dementia Hyperlipidemia Father Hypertension Hyperlipidemia Family/Other Testicular cancer Prostate cancer Grandmother Dementia Family/Other Dementia Grandfather Diabetes mellitus Hypertension Grandmother Dementia Social History marital status: household members: spouse, family (mother) and children lives independently: Yes caregiver/support person: Yes housing: house pets and animals: Yes (2 dogs 1 cat; aware of toxo precautions) education level: college (associate's degree) occupational status: employed (part-time) 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) special 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 needs: No travel history: over 6 months ago seatbelt use: always helmet use: Yes water heater temp set < 120 deg: Yes working smoke detector in home: Yes fire extinguisher in home: Yes carbon monox detector in home: Yes firearms in home: No do you feel safe at home: Yes Smoking Status: Never smoker second hand exposure: No alcohol intake: never substance use type: does not use during the past year weight has: remained stable well-balanced diet: about half the time daily servings fruits/ve-4 caffeine: Yes (Well within 200mg limit) Type(s) of exercise: none Meds Home Medications and Allergies Home Medications Medication Instructions Recorded Confirmed Type omeprazole 20 mg capsule,delayed 20 mg PO BID 04/29/22 12/15/22 History release prenat.vits,batsheva,xwo-ggei-dwytm 1 tab PO DAILY 04/29/22 12/15/22 History Allergies Allergy/AdvReac Type Severity Reaction Status Date / Time lactose AdvReac Intermediate Abdominal Uncoded 12/15/22 13:49 Pain OB Exam Narrative Exam Narrative: Generally: Patient lying in bed, no acute distress Lungs: Clear to auscultation bilaterally Cardiovascular: Regular rate and rhythm Fundal height: 40 cm Estimated weight: 7-1/2 lb Extremities: Trace edema Objective Labs 12/21/22 06:40 Assessment and Plan Assessment and Plan Assessment and Plan narrative: Assessment: 42-year-old 3 para 1 at 39-,1/7 weeks gestation with a previous section Desires permanent sterilization Plan: Repeat low-transverse section and bilateral salpingectomy The risks, benefits, and alternatives to the procedure were explained to the patient. The risks including bleeding, infection, injury to the bowel, bladder, or ureters. She understands these risks and agrees to proceed. A full par Q was held and consent form was signed. Patient understands that by removing the tubes, she will be unable to have anymore children. Time Spent with Patient Total time spent with greater than 50% in coordination of care (as documented) at patient's floor/unit and/or counseling patient:: less than 15 minutes
[2022-12-21 06:51] LABS: Add Manual Diff / Slide Review NO; Basophils Absolute Auto 0 /uL (0-100); Basophils Percent Auto 0.5 % (0-2); Eosinophils Absolute Auto 100 /uL (0-450); Eosinophils Percent Auto 1.1 % (2-4); Hematocrit 34.2 % (36-46); Hemoglobin 12.1 g/dL (12.0-16.0); Lymphocytes Absolute Auto 1400 /uL (1100-4500); Lymphocytes Percent Auto 16.6 % (25-40); Mean Corpuscular HGB Conc 35.3 % (30-36); Mean Corpuscular Hemoglobin 30.6 PG (26-34); Mean Corpuscular Volume 86.7 fL (80-100); Monocytes Absolute Auto 500 /uL (0-900); Neutrophils Absolute Auto 6300 /uL (1500-7000); Neutrophils Percent Auto 75.8 % (50-75); Platelet Count 201 X10^3/uL (150-400); Red Blood Cell Count 3.95 X10^6/uL (4.0-5.2); Red Cell Distribution Width 13.2 % (11.6-14.8); White Blood Cell Count 8.4 X10^3/uL (4.5-11.0)
[2022-12-21] MEDS: LACTATED RINGERS 1,000 ML 999 ML IV (06:52)
[2022-12-21] MEDS: CITRIC ACID/SODIUM CITRATE 15 ML SOLUTION 30 ML PO (06:54)
--- NOTE | 2022-12-21 06:54 | PM.PREOP ---
Pre-operative Note COVID-19 Criteria for continued procedure: Non-surgical alternatives not available or appropriate per current SOC Interval Note History & Physical reviewed/Exam performed by Physician: Yes Changes to H&P: No H&P completed within 30 days and has changed as indicated here:: 12/21/22
--- NOTE | 2022-12-21 07:18 | SUR.OPER ---
Addendum entered by Althea Caceres R.N. 12/21/22 08:16: FHT 155; Live female born at 0812. Cord blood and placenta sent with OB nurse. Original Note: Supine on Padded OR bed, head on pillow, safety belt at thigh, arms secured on padded arm boards at <90 degrees abduction. Bump under right buttock. Legs uncrossed with pillow under knees, gel pad to heels, tape over blanket to lower legs.
[2022-12-21] MEDS: CEFAZOLIN 2 GM/100 ML PREMIX 100 ML IV (08:01)
[2022-12-21] MEDS: LACTATED RINGERS 1,000 ML 42 ML IV ×3 (08:08→15:10)
[2022-12-21] MEDS: ACETAMINOPHEN IV 1,000 MG/100 ML VIAL 400 MG IV ×2 (08:13→16:41)
[2022-12-21 09:02] VITALS: BP 111/69; PULSE 72; RESP 13; TEMP 36.3; O2SAT 96
--- NOTE | 2022-12-21 09:07 | PM.OBCS.1 ---
Operative Date/Time/Diagnoses Date of procedure: 12/21/22 Time of procedure: 09:07 Pre-op diagnosis: 39-1/7 weeks gestation Previous section Desires permanent sterilization Post-op diagnosis: same Procedure & Clinicians Procedure: Repeat low-transverse section Bilateral salpingectomy Same procedure as scheduled: Yes Indications: 39-,1/7 weeks gestation Previous section Desires permanent sterilization Surgeon: Sujey Huitron Yes if Unassisted: No Deputy Commonwealth'S Attorney: Genesis Koenig Reason for Deputy Commonwealth'S Attorney: The virtual assistant was necessary to retract upon entry into the abdomen and uterus. She assisted with delivery of the infant with fundal pressure. She assisted with closure of the uterus and abdomen with retraction, clipping of suture, and closure of the contralateral fascia. Anesthesia Type: Spinal (With Duramorph) Operative Notes Findings: Live female infant in the direct occiput anterior presentation Normal uterus, tubes, and ovaries Closure Type: primary Specimen(s): cord blood, placenta and tubes/segments of tubes Intraoperative meds administered: Duramorph and Pitocin Applied: Catheter (To continuous drainage) Estimated Blood Loss (mL): 500 Blood products transfused: none Procedure in detail: The patient was taken to the operating room where she was placed in the seated position. Spinal anesthesia with Duramorph was administered. The patient was then placed in the dorsal supine position with a leftward tilt. She was prepped and draped in the usual sterile fashion. A timeout was performed. After spinal analgesia was found to be adequate, a Pfannenstiel skin incision was made through the previous incision and carried through to the underlying layer fascia. The fascia was nicked in the midline, and the incision extended bilaterally with the Mahmood scissors. The superior aspect of the fascial incision was grasped with a [place] clamps, elevated, and the underlying rectus muscles dissected off sharply and bluntly. Attention was then turned to the inferior aspect of this incision which in a similar fashion was grasped with a [place] clamps, elevated, and the underlying rectus muscles dissected off sharply and bluntly. The rectus muscles were in the midline. The peritoneum was identified, grasped between 2 hemostats, and entered sharply with the Metzenbaum scissors. This incision was extended superiorly and inferiorly with good visualization of the bladder. The bladder blade was inserted. The vesicouterine peritoneum was identified, grasped with the pickup, and entered sharply with the Metzenbaum scissors. This incision was extended bilaterally, and the bladder flap was created digitally. The bladder blade was reinserted. The lower uterine segment was incised in a transverse fashion with the scalpel. Upon entering the amniotic sac there was moderate amount of clear amniotic fluid. The infant's head was delivered with vacuum assistance. The nose and mouth were suctioned with bulb suction. The remainder of the body delivered without difficulty. The cord was double clamped and cut after 1 minute. The was handed off to waiting RN and RT. The placenta was delivered manually. The uterus was cleared of all clots and debris. The uterine incision was repaired with #1 chromic in a running interlocking fashion, and a second layer the same suture was used for an imbricating layer. Hemostasis was achieved. The tubes and ovaries were examined and were found to be normal. The gutters were cleared of all clots and debris. A Carmelo was placed on the fimbriated end of the left tube. Using the LigaSure, the mesosalpinx was cauterized and cut all the way down to the cornua of the uterus. The tube was amputated at the cornua. All of this was repeated on the patient's right tube. The bladder flap was reapproximated using 2-0 Vicryl in a running fashion. The peritoneum was closed using 2-0 Vicryl in a running fashion. The fascia was reapproximated using 0 Vicryl in a running fashion. The subcutaneous layer was copiously irrigated with warm normal saline. 6 simple interrupted sutures of 3-0 Vicryl were placed to reapproximate the subcutaneous layer. The skin was closed with 4-0 Monocryl in a subcuticular fashion. Steri-Strips were placed. An Aquacel dressing was placed. The uterus was expressed of a small amount of old blood. Sponge, lap, and instrument counts were correct x-2. The patient tolerated the procedure well, and was taken to PACU in stable condition. Complications: none Baby 1: Infant Gender: Female Presentation: vertex Position: Left Occiput Anterior Placental Delivery Description: Manual Removal Cord Vessel Description: 3 Vessels and Clamped/Cut (After 1 minute) score (1 min): 8 score (5 min): 9 weight: 8 lb 7 oz Post-operative Condition: stable Disposition: PACU Aftercare: routine postop
[2022-12-21 09:10] VITALS: BP 117/55; PULSE 84; RESP 12; O2SAT 97
[2022-12-21 09:15] VITALS: BP 107/53; PULSE 74; RESP 12; O2SAT 97
[2022-12-21 09:20] VITALS: PULSE 72; RESP 15; O2SAT 97
[2022-12-21] MEDS: METOCLOPRAMIDE 10 MG/2 ML INJ IV ×2 (10:01→16:34)
[2022-12-21] MEDS: ONDANSETRON 4 MG/2 ML INJ IV ×2 (10:47→16:34)
[2022-12-21] MEDS: hydrOXYzine 50 MG/ML INJ 25 MG IM (12:58)
[2022-12-21] MEDS: KETOROLAC 30 MG/ML VIAL IV ×2 (16:34→22:48)
[2022-12-21] MEDS: PANTOPRAZOLE DR 20 MG TABLET PO (21:05)
[2022-12-22] MEDS: ACETAMINOPHEN 325 MG TABLET 650 MG PO ×4 (02:12→22:15)
[2022-12-22] MEDS: KETOROLAC 30 MG/ML VIAL IV ×2 (05:21→18:31)
[2022-12-22 06:13] LABS: Add Manual Diff / Slide Review NO; Basophils Absolute Auto 0 /uL (0-100); Basophils Percent Auto 0.1 % (0-2); Eosinophils Absolute Auto 100 /uL (0-450); Eosinophils Percent Auto 0.7 % (2-4); Hematocrit 31.2 % (36-46); Hemoglobin 10.9 g/dL (12.0-16.0); Lymphocytes Absolute Auto 1200 /uL (1100-4500); Lymphocytes Percent Auto 14.1 % (25-40); Mean Corpuscular Hemoglobin 30.6 PG (26-34); Mean Corpuscular Volume 87.3 fL (80-100); Monocytes Absolute Auto 600 /uL (0-900); Monocytes Percent Auto 7.1 % (3-14); Neutrophils Absolute Auto 6500 /uL (1500-7000); Platelet Count 155 X10^3/uL (150-400); Red Blood Cell Count 3.58 X10^6/uL (4.0-5.2); White Blood Cell Count 8.3 X10^3/uL (4.5-11.0)
[2022-12-22] MEDS: DOCUSATE 100 MG CAPSULE PO (08:56)
[2022-12-22] MEDS: PRENATAL VIT,CALC/IRON/FOLIC 1 TABLET 1 TAB PO (08:56)
[2022-12-22] MEDS: LANOLIN OINT 7 GM 1 APPLIC TOP (08:56)
[2022-12-22] MEDS: PANTOPRAZOLE DR 20 MG TABLET PO ×2 (10:07→22:16)
[2022-12-22] MEDS: IBUPROFEN 400 MG TABLET 200 MG PO ×2 (10:08→16:11)
[2022-12-23] MEDS: KETOROLAC 30 MG/ML VIAL IV (00:36)
--- NOTE | 2022-12-23 06:18 | PM.OBPN.1 ---
Subjective - OB Subjective Patient comments: no complaints and pain well controlled feeding status: exclusively breast feeding Narrative: Nausea gone. Patient received Protonix last night and this helped. Date Patient Seen: 12/22/22 Time Patient Seen: 18:45 Interval history: Postop day # 1 status post repeat low-transverse section. Patient doing well. Nausea and vomiting are gone. going well. Ambulating. Tolerating a diet. Pain well controlled. Exam Vital Signs (past 8 hours): Oxygen Delivery Method Room Air Narrative Exam Narrative: Generally: Patient is sitting up in bed, no acute distress Lungs: Clear to auscultation bilaterally Cardiovascular: Regular rate and rhythm Fundus: Firm at U -1 Incision: Clean dry and intact with Aquacel dressing Extremities: No edema, negative Homans Objective Labs 12/22/22 05:42 Labs: Laboratory Results - last 24 hr 12/22/22 05:42 WBC 8.3 RBC 3.58 L Hgb 10.9 L Hct 31.2 L MCV 87.3 MCH 30.6 MCHC 35.0 RDW 13.0 Plt Count 155 Neut % (Auto) 78.0 H Lymph % (Auto) 14.1 L [place] % (Auto) 7.1 Eos % (Auto) 0.7 L Baso % (Auto) 0.1 Neut # (Auto) 6500 Lymph # (Auto) 1200 [place] # (Auto) 600 Eos # (Auto) 100 Baso # (Auto) 0 Assessment & Plan Plan day: 1 plan OB: routine postop care Time Spent With Patient Time: Total time spent is greater than 50% in coordination of care (as documented) at patient's floor/unit and/or counseling patient: Time with patient: 15-24 minutes
[2022-12-23 08:34] VITALS: BP 115/79; PULSE 61; RESP 17; TEMP 36.7
[2022-12-23] MEDS: PANTOPRAZOLE DR 20 MG TABLET PO (08:42)
[2022-12-23] MEDS: ACETAMINOPHEN 325 MG TABLET 650 MG PO (08:42)
[2022-12-23] MEDS: PRENATAL VIT,CALC/IRON/FOLIC 1 TABLET 1 TAB PO (08:42)
[2022-12-23] MEDS: DOCUSATE 100 MG CAPSULE PO (08:42)
--- NOTE | 2023-01-05 00:59 | P.DS_ITS ---
Discharge Providers Provider Date of admission: 12/21/22 05:42 Discharge Date: 12/23/22 Primary care physician: Genesis Koenig MD Consults: 12/21/22 09:43 Consult to Medical Technologist Routine Comment: Discharge provider: Sujey Jung MD Summary Hospital Course Date Patient Seen: 12/23/22 Time Patient Seen: 09:30 Diagnoses: Thirty-nine weeks' gestation Previous section Advanced maternal age Desires permanent sterilization Repeat low-transverse section Bilateral salpingectomy Hospital Course: Patient is a 42-year-old 3 para 2 who presented on December 21, 2022 for a scheduled repeat low-transverse section and bilateral salpingectomy. She underwent this procedure without complication. Her postoperative course was unremarkable. She was discharged home on December 23, 2022. She was tolerating a diet. was going well. No nausea or vomiting. She had voided without the catheter. She was ambulating without assistance. Her pain was well controlled. Peripartum Data Infant Delivery Method: Section Procedures: Spinal anesthesia Repeat low-transverse section Bilateral salpingectomy complications: none Ovid 1: Gender: Female Disposition of : home Status at Discharge Cognitive/behavioral status at discharge: oriented Functional status at discharge: independent ambulation Overall status at discharge: patient is progressing back to baseline Time Spent with Patient Time attestation: Total time spent providing and/or coordinating discharge services: Time spent: Less than 30 minutes Objective Labs 12/22/22 05:42 Exam Vital Signs (past 8 hours): Oxygen Delivery Method Room Air Narrative Exam Narrative: Generally: Patient is sitting up in bed, no acute distress Lungs: Clear to auscultation bilaterally Cardiovascular: Regular rate and rhythm Fundus: Firm at U -1 Incision: Clean dry and intact with Aquacel dressing Extremities: Trace edema, negative Homans Discharge Plan Discharge Plan Patient Disposition: Home Provider Discharge Comment: Call with fever, chills, redness or drainage around the incision, or bleeding vaginally more than a pad in an hour Tylenol 650 mg every 6 hours as needed Ibuprofen 200-400 mg every 6 hours as needed, make sure to take this with milk Stool softener as needed Continue vitamins Push oral fluids Discharge orders & Medications Prescriptions: New docusate sodium [Colace] 100 mg capsule 100 mg PO BID Qty: 20 0RF Continued prenat.vits,batsheva,psb-feva-hecft Tablet 1 tab PO DAILY omeprazole 20 mg capsule,delayed release(DR/EC) 20 mg PO BID Follow up/Referrals: Sujey Jung MD [Physician] - 1 Week (Please follow up with Dr. Jung's office on December 29 @ 10AM. ) Diet/Activity/Treatments Diet: Regular Activity: No heavy lifting Nothing in the vagina for 6 weeks Skin/Wound/Dressing Care Report to your healthcare provider any signs of infection, such as:: chills, fever, increased pain, unusual drainage and unusual redness Dressing: Do not remove Visit Report/Discharge Packet Instructions: DI for Stand Alone Forms: Discharge: Care, Patient Portal/API, Stroke Signs & Symptoms Discharge Data Primary Care Provider: Genesis Koenig Discharges patient from system. Discharge Date/Time: 12/23/22 11:15
== END 2022-12-23 11:15 | disposition home or self-care (01) | DRG 785 ==
PROVIDERS: Admitting Provider Obstetrics & Gynecology; PCP Family Medicine; Referring Provider Obstetrics & Gynecology; Visit Provider Obstetrics & Gynecology
PROC: 10D00Z1 Extraction of Products of Conception, Low, Open Approach (ICD-10-PCS; CPT 59514; principal; 2022-12-21 07:45)
DX: O34.211 Maternal care for low transverse scar from previous cesarean delivery (principal); Z3A.39 39 weeks gestation of pregnancy; Z37.0 Single live birth; O99.824 Streptococcus B carrier state complicating childbirth; Z30.2 Encounter for sterilization
CPT/HCPCS: 36415; 58611; 59050; 59510; 85025; 86850; 86900; 86901; J0131; J0690; J1100; J1885; J2274; J2405; J2704; J2765; J3410

== ENCOUNTER → 2023-02-05 13:10 | Outpatient (CLI) | payer OTHER, SELFPAY ==
--- NOTE | 2023-02-05 13:11 | DI.US.S_ITS ---
PROCEDURE: US ABDOMEN LIMITED INDICATIONS: POSSIBLE HERNIA MIDLINE TECHNIQUE: Real-time scanning was performed of the abdominal and retroperitoneal organs, with image documentation. COMPARISON: None. FINDINGS: A bowel containing hernia within the midline supraumbilical anterior abdominal wall is present protruding through a 20 mm diameter abdominal wall defect. IMPRESSION: Bowel containing supraumbilical hernia. Dictated by: Marisabel Dey M.D. on 02/05/2023 at 14:43 Approved by: Marisabel Dey M.D. on 02/05/2023 at 14:43
== END ==
PROVIDERS: PCP Family Medicine; Referring Provider Obstetrics & Gynecology; Visit Provider Obstetrics & Gynecology
DX: K42.9 Umbilical hernia without obstruction or gangrene (principal)
CPT/HCPCS: 76705

== ENCOUNTER 2023-03-10 09:55 | Day surgery (SDC) | payer OTHER, SELFPAY ==
[2023-03-04 13:28] VITALS: BMI 39.4
[2023-03-10] VITALS (12 sets, daily range): BP systolic 110–129; BP diastolic 63–82; PULSE 64–95; RESP 11–18; TEMP 35.9–36.8; O2SAT 92–100; BMI 39.6
[2023-03-10] MEDS: LACTATED RINGERS 1,000 ML 42 ML IV ×2 (10:27→13:24)
[2023-03-10] MEDS: ACETAMINOPHEN 325 MG TABLET 975 MG PO (10:35)
[2023-03-10] MEDS: SCOPOLAMINE 1 PATCH TOP (10:35)
[2023-03-10] MEDS: FAMOTIDINE 20 MG/2 ML VIAL IV (11:21)
--- NOTE | 2023-03-10 11:21 | PM.PREOP ---
Pre-operative Note Interval Note History & Physical reviewed/Exam performed by Physician: Yes Changes to H&P: No
[2023-03-10] MEDS: CEFAZOLIN 2 GM/100 ML PREMIX 100 ML IV (11:40)
[2023-03-10] MEDS: BUPIVACAINE 0.25% (PF) VIAL 30 ML INJ (11:55)
[2023-03-10] MEDS: BUPIVACAINE LIPOSOME 266 MG/20 ML VIAL INJ (11:55)
--- NOTE | 2023-03-10 11:58 | SUR.OPER ---
Supine on padded OR bed, head on pillow, arms secured on padded arm boards at <90 degrees abduction, legs uncrossed, safety belt at thigh, tape over blanket over lower legs.
[2023-03-10] MEDS: HYDROMORPHONE 1 MG INJ IV ×2 (13:09→13:14)
--- NOTE | 2023-03-10 13:16 | P.OP_ITS ---
Operative Date/Time/Diagnoses Date of procedure: 03/10/23 Pre-op diagnosis: Ventral hernia 5 cm Post-op diagnosis: same Procedure & Clinicians Procedure: Open repair of supraumbilical 5 cm ventral hernia Same procedure as scheduled: Yes Indications: Symptomatic reducible ventral hernia Surgeon: Mike Finney Operative Notes Findings: Chronically incarcerated omentum within the hernia sac Specimen(s): none sent Estimated Blood Loss (mL): 10 Procedure in detail: Patient was brought to the operating room placed supine on the table. Bilateral lower extremity compression devices were applied. They received 2 g of Ancef prior to skin incision. Prepped and draped in sterile fashion, ioban was placed. Time-out was performed. A limited midline incision was made superior to the umbilicus with a knife. The subcutaneous tissue was divided to expose the midline fascia. The fascia had a 5 cm defect extending from above the level of the umbilicus. The fascia was grasped elevated and sharply opened. There was minimal adhesive tissue within the abdomen. A towel was then placed over the visceral content to protect it out of harms way. Hernia sac was excised. Per itoneum was dissected off the abdominal wall and we selected a 8 x 12 cm Bard Ventralex mesh which was placed anti-adhesive surface down into the fascial defect. The mesh was anchored with interrupted Ethibond in transfascial fashion in in multiple locations using the kim winn device such that the mesh lay under physiologic tension. The anterior sheath/ linea alba was then closed with a running Vicryl without tension. Hemostasis was checked. The subcutaneous tissue was then reapproximated using Vicryl skin closed with running 4-0 Monocryl followed by the application of Dermabond. Patient emerged from anesthesia was extubated and transferred to recovery room in stable condition. Complications: none Post-operative Condition: stable Disposition: same day surgery
[2023-03-10] MEDS: METOCLOPRAMIDE 10 MG/2 ML INJ IV (13:23)
[2023-03-10] MEDS: hydrOXYzine 50 MG/ML INJ 25 MG IM (13:23)
[2023-03-10] MEDS: ONDANSETRON 4 MG/2 ML INJ IV (13:23)
[2023-03-10] MEDS: OXYCODONE IR 5 MG TABLET PO (13:31)
[2023-03-10] MEDS: fentaNYL 100 MCG/2 ML INJ IV (13:46)
== END 2023-03-10 15:05 | disposition home or self-care (01) ==
PROVIDERS: PCP Family Medicine; Referring Provider Surgery; Visit Provider Surgery
PROC: (CPT 49593; principal; 2023-03-10 11:45)
DX: K43.9 Ventral hernia without obstruction or gangrene (principal); E66.9 Obesity, unspecified; Z68.41 Body mass index [BMI] 40.0-44.9, adult
CPT/HCPCS: 49593; 81025; 82962; C9290; J0690; J1100; J1170; J2250; J2405; J2704; J2765; J3010; J3410; J3490

== ENCOUNTER → 2024-02-24 16:27 | Outpatient (CLI) | payer OTHER, SELFPAY | PROVIDERS: PCP Family Medicine; Referring Provider Internal Medicine; Visit Provider Internal Medicine | DX: Z23 Encounter for immunization (principal) | CPT/HCPCS: 90471; 90656 ==